=== PATIENT | male | born 2005 | race Native Hawaiian/Other Pacific Islander ===

== ENCOUNTER 2024-03-24 21:57 | Emergency (ER) | payer MEDICAID | END 2024-03-24 23:03 | disposition home or self-care (01) | LOC: FB.ED 21:57 | DX: S06.0X0A Concussion without loss of consciousness, initial encounter (principal); W18.40XA Slipping, tripping and stumbling without falling, unspecified, initial encounter; Y92.019 Unspecified place in single-family (private) house as the place of occurrence of the external cause | CPT/HCPCS: 99284 ==

== ENCOUNTER 2024-05-08 18:35 | Emergency (ER) | payer MEDICAID ==
[2024-05-08] MEDS ORDERED: Lidocaine 1% 5 ML VIAL INFILT ONE (18:36)
[2024-05-08] MEDS: Diphtheria,Pertussis(Acell),Tetanus Vaccine 0.5 ML Syringe IM ONE (18:59)
== END 2024-05-08 19:05 | disposition home or self-care (01) ==
LOC: FB.ED 18:35
DX: S01.01XA Laceration without foreign body of scalp, initial encounter (principal); Z23 Encounter for immunization; Z86.16 Personal history of COVID-19; W00.0XXA Fall on same level due to ice and snow, initial encounter; Y93.89 Activity, other specified
CPT/HCPCS: 12001; 90471; 90715; 99282-25

== ENCOUNTER 2024-05-14 15:33 | Emergency (ER) | payer MEDICAID ==
[2024-05-14] MEDS: Ondansetron 4 MG Tab.DIS PO ONE (16:07)
== END 2024-05-14 16:56 | disposition home or self-care (01) ==
LOC: FB.ED 15:33
DX: S09.90XA Unspecified injury of head, initial encounter (principal); Z86.16 Personal history of COVID-19; W19.XXXA Unspecified fall, initial encounter
CPT/HCPCS: 70450; 99284; Q0162

== ENCOUNTER 2025-01-31 11:35 | Emergency (ER) | payer MEDICAID ==
[2025-01-31] MEDS ORDERED: Lidocaine 1% PF 2 ML SDV INFILT ONE (11:36)
== END 2025-01-31 14:03 | disposition home or self-care (01) ==
LOC: FB.ED 11:35
DX: S01.01XA Laceration without foreign body of scalp, initial encounter (principal); S09.90XA Unspecified injury of head, initial encounter; F17.200 Nicotine dependence, unspecified, uncomplicated; Z86.16 Personal history of COVID-19; Z79.899 Other long term (current) drug therapy; W01.198A Fall on same level from slipping, tripping and stumbling with subsequent striking against other object, initial encounter
CPT/HCPCS: 12002; 70450; 99283; J2003